=== PATIENT | female | born 1980 | race Hispanic/Latino ===

== ENCOUNTER 2018-05-22 12:12 | Emergency (ER) | payer OTHER ==
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
[2018-05-22] MEDS ORDERED: IBUPROFEN 400 MG TAB ONE (13:53)
[2018-05-22] MEDS ORDERED: ACETAMINOPHEN 500 MG TAB ONE (13:54)
[2018-05-22] MEDS ORDERED: ONDANSETRON 4 MG (ODT) TAB ONE (13:54)
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
[2018-05-22 14:40] LABS: Urine Blood NEGATIVE (NEG); Urine Glucose NEGATIVE (NEG); Urine Protein NEGATIVE (NEG)
== END 2018-05-22 14:16 | disposition home or self-care (01) ==
LOC: ER 12:12
DX: R51 Headache (principal); Z88.1 Allergy status to other antibiotic agents
CPT/HCPCS: 70450; 81003; 81025; 99283

== ENCOUNTER 2018-06-24 12:40 | Emergency (ER) | payer OTHER ==
--- NOTE | 2018-06-24 13:50 | ER ---
Nurse's Notes [facility] Name: Suzanna Liu Age: 37 yrs Sex: Female : 1980 Arrival Date: 06/24/2018 Time: 12:42 Bed Waiting Private MD: Diagnosis: Presentation: 06/24 12:48 Presenting complaint: Patient states: "I've been seeing bright holographic lights with aa5 my left eye only for about an hour and I have a headache now". Pt also reports nausea. Transition of care: patient was not received from another setting of care. Onset of symptoms was June 24, 2018. Risk Assessment: Do you want to hurt yourself or someone else? Patient reports no desire to harm self or others. Initial Sepsis Screen: Does the patient meet any 2 criteria? No. Patient's initial sepsis screen is negative. Does the patient have a suspected source of infection? No. Patient's initial sepsis screen is negative. Care prior to arrival: None. 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 - Social history:: Smoking status: Patient/guardian denies using tobacco. - Ebola Screening: : No symptoms or risks identified at this time. Vital Signs: 12:50 BP 116 / 70; Pulse 81; Resp 16 S; Temp 98.3(TE); Pulse Ox 100% on R/A; Weight 67.59 kg aa5 (R); Height 5 ft. 2 in. (157.48 cm) (R); Pain 3/10; 12:50 Body Mass Index 27.25 (67.59 kg, 157.48 cm) aa5 ED Course: 12:42 Patient arrived in ED. as 12:48 Arm band placed on. aa5 12:49 Triage completed. aa5 13:49 Duran Sánchez MD is Attending Physician. ss Administered Medications: No medications were administered Outcome: 13:49 Patient left the ED. ss Signatures: Rubia Nava Audri RN RN aa5 Karley Chiu, RN RN ss
== END 2018-06-24 13:49 | disposition left against medical advice (07) ==
LOC: ER 12:40
DX: Z53.21 Procedure and treatment not carried out due to patient leaving prior to being seen by health care provider (principal)

== ENCOUNTER 2018-06-25 10:11 | Emergency (ER) | payer OTHER ==
[2018-06-25] MEDS ORDERED: METOCLOPRAMIDE 10 MG/2mL INJ ONE (11:30)
[2018-06-25] MEDS ORDERED: NA CHLORIDE 0.9% 100 ML IV ONE (11:30)
[2018-06-25] MEDS ORDERED: DIPHENHYDRAMINE 50 MG/ML VIAL ONE (11:30)
--- NOTE | 2018-06-25 11:48 | RAD REPORT ---
EXAM DESCRIPTION: CT - Head Brain Wo Cont - 06/25/2018 11:37 am CLINICAL HISTORY: Headache left-sided pain any itching COMPARISON: CT head May 22, 2018 TECHNIQUE: Axial 5 mm thick images of the head were obtained without IV contrast. All CT scans are performed using dose optimization technique as appropriate and may include automated exposure control or mA/KV adjustment according to patient size. FINDINGS: No intracranial hemorrhage, mass, edema or shift of mid-line structures. No acute infarcti on changes seen. No abnormal extra-axial fluid collections. Ventricles are normal. Mastoid air cells and visualized portions of the paranasal sinuses are clear. No acute bony findings. No identifiable change from comparison. IMPRESSION: Negative non-contrast CT head examination.
--- NOTE | 2018-06-25 12:13 | EDPHYS ---
Physician Documentation [facility] Name: Suzanna Liu Age: 37 yrs Sex: Female : 1980 Arrival Date: 06/25/2018 Time: 10:11 Bed 24 Private MD: ED Physician Duran Sánchez HPI: 06/25 11:52 This 37 yrs old Female presents to ER via Ambulatory with complaints of gs Headache, Doesn't Feel Right. 11:52 The patient complains of pain to the left christian. The patient describes the headache as gs throbbing, burning. Onset: The symptoms/episode began/occurred gradually, yesterday. Associated signs and symptoms: Pertinent positives: blurred vision, AURA. Associated signs and symptoms: Pertinent negatives: altered mental status, vomiting. Severity of symptoms: At its worst the pain was severe, in the emergency department the pain has improved, moderately. Headache History: Denies prior headaches. The symptoms are alleviated by nothing. the symptoms are aggravated by nothing. The patient has not experienced similar symptoms in the past. The patient has not recently seen a physician. 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 - Social history:: Smoking status: Patient uses tobacco products, cigars, "one or two puffs off a cigar", Patient uses alcohol, occasionally. - Ebola Screening: : Patient denies travel to an Ebola-affected area in the 21 days before illness onset. ROS: 11:52 All other systems are negative. gs Exam: 11:52 Head/Face: Normocephalic, atraumatic. Eyes: Pupils equal round and reactive to light, gs extra-ocular motions intact. Lids and lashes normal. Conjunctiva and sclera are non-icteric and not injected. Cornea within normal limits. Periorbital areas with no swelling, redness, or edema. ENT: Nares patent. No nasal discharge, no septal abnormalities noted. Tympanic membranes are normal and external auditory canals are clear. Oropharynx with no redness, swelling, or masses, exudates, or evidence of obstruction, uvula midline. Mucous membranes moist. Neck: Trachea midline, no thyromegaly or masses palpated, and no cervical lymphadenopathy. Supple, full range of motion without nuchal rigidity, or vertebral point tenderness. No Meningismus. Chest/axilla: Normal chest wall appearance and motion. Nontender with no deformity. No lesions are appreciated. Cardiovascular: Regular rate and rhythm with a normal S1 and S2. No gallops, murmurs, or rubs. Normal PMI, no JVD. No pulse deficits. Respiratory: Lungs have equal breath sounds bilaterally, clear to auscultation and percussion. No rales, rhonchi or wheezes noted. No increased work of breathing, no retractions or nasal flaring. Abdomen/GI: Soft, non-tender, with normal bowel sounds. No distension or tympany. No guarding or rebound. No evidence of tenderness throughout. Back: No spinal tenderness. No costovertebral tenderness. Full range of motion. Skin: Warm, dry with normal turgor. Normal color with no rashes, no lesions, and no evidence of cellulitis. MS/ Extremity: Pulses equal, no cyanosis. Neurovascular intact. Full, normal range of motion. Neuro: Awake and alert, GCS 15, oriented to person, place, time, and situation. Cranial nerves II-XII grossly intact. Motor strength 5/5 in all extremities. Sensory grossly intact. Cerebellar exam normal. Normal gait. 11:52 Constitutional: The patient appears in no acute distress, alert, awake. Vital Signs: 10:18 BP 118 / 79; Pulse 82; Resp 17; Temp 98.0(O); Pulse Ox 100% on R/A; Weight 67.59 kg tw2 (R); Height 5 ft. 2 in. (157.48 cm) (R); Pain 3/10; 11:29 BP 111 / 62; Pulse 86; Resp 16; Pulse Ox 100% on R/A; aj1 12:18 BP 98 / 51; Pulse 66; Resp 16; Pulse Ox 100% on R/A; aj1 10:18 Body Mass Index 27.25 (67.59 kg, 157.48 cm) tw2 Nyasia Coma Score: 11:52 Eye Response: spontaneous(4). Verbal Response: oriented(5). Motor Response: obeys gs commands(6). Total: 15. MDM: 11:08 Patient medically screened. 11:52 Differential diagnosis: cluster headache, migraine, neoplasm, vasomotor headache. Data reviewed: vital signs, nurses notes, radiologic studies. Response to treatment: the patient's symptoms have markedly improved after treatment, the patient's condition has returned to base line, and as a result, I will discharge patient. ED course: EPISODE SAME YESTERDAY WENT AWAY RETURNED THIS AM, DIFFERENT CHIN SO WILL CT. 12:11 Response to treatment: the patient's symptoms have resolved after treatment, the gs patient's pain is gone. 06/25 11:12 Order name: CT Head Brain wo Cont; Complete Time: 11:52 Administered Medications: 11:26 Drug: Benadryl 12.5 mg Route: IVP; Site: right antecubital; aj1 12:00 Follow up: Response: No adverse reaction aj1 11:26 Drug: Reglan 5 mg Route: IVP; Site: right antecubital; aj1 12:00 Follow up: Response: No adverse reaction aj1 12:00 Not Given (Patient refused, states that she is feeling better): TORadol - Ketorolac 15 aj1 mg IVP once Disposition: 06/25/18 12:12 Discharged to Home. Impression: Headache. - Condition is Stable. - Discharge Instructions: General Headache Without Cause, Migraine Headache. - Prescriptions for Fiorinal 50- 325-40 mg Oral Capsule - take 1 capsule by ORAL route every 6 hours As needed - not to exceed 6 capsules per day; 12 capsule. - Medication Reconciliation Form, Thank You Letter, Antibiotic Education, Prescription Opioid Use form. - Follow up: Dick Lutehr MD; When: 2 - 3 days; Reason: Re-evaluation by your physician. Signatures: Dispatcher [employer] Lucia Crouch RN RN aj1 Renuka Gilbert RN RN tw2 Duran Sánchez MD MD Corrections: (The following items were deleted from the chart) 12:19 12:12 06/25/2018 12:12 Discharged to Home. Impression: Headache. Condition is Stable. aj1 Forms are Medication Reconciliation Form, Thank You Letter, Antibiotic Education, Prescription Opioid Use. Follow up: Dick Luther; When: 2 - 3 days; Reason: Re-evaluation by your physician. gs
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
== END 2018-06-25 12:19 | disposition home or self-care (01) ==
LOC: ER 10:11
DX: R51 Headache (principal); Z72.0 Tobacco use; Z88.1 Allergy status to other antibiotic agents
CPT/HCPCS: 70450; J2765

== ENCOUNTER 2019-02-27 20:04 | Emergency (ER) | payer OTHER ==
[2019-02-27] MEDS ORDERED: NA CHLORIDE 0.9% 1,000 ML ONE (20:36)
[2019-02-27 21:07] LABS: Absolute Lymphocytes (CBC) 2.1 K/uL (0.7-4.9); Basophils % 1.2 % (0-1.3); Hematocrit 38.7 % (36.0-45.0); Lymphocytes % 28.6 % (15.3-44.8); MPV 9.7 fL (7.6-11.3); RBC Red Blood Cell Count 4.48 M/uL (3.86-4.86)
[2019-02-27 21:09] LABS: Urine Blood TRACE (NEG); Urine Glucose NEGATIVE (NEG); Urine Protein NEGATIVE (NEG); Urine Specific Gravity 1.015 (1.005-1.030); Urine pH 6.5 (5.0-7.0)
[2019-02-27 21:15] LABS: Urine Bacteria <20 /HPF (<20); Urine Culture Reflex Order NOT NEEDED; Urine RBC <5 /HPF (NONE SEEN)
[2019-02-27 21:22] LABS: Albumin 4.1 g/dL (3.4-5.0); Bilirubin Direct 0.1 mg/dL (0-0.2); Bilirubin Total 0.4 mg/dL (0.2-1.0); Potassium 3.8 mmol/L (3.5-5.1); Protein, Total 7.2 g/dL (6.4-8.2)
--- NOTE | 2019-02-27 21:41 | ER ---
Nurse's Notes [facility] Name: Suzanna Liu Age: 38 yrs Sex: Female : 1980 Arrival Date: 02/27/2019 Time: 20:07 Bed 16 Private MD: Diagnosis: Gas pain;Biliary colic Presentation: 02/27 20:12 Presenting complaint: Patient states: "I am having abdominal pain. I am supposed to jd3 have my Gal Bladder looked at, but the pain is also in my left side and goes around to my back.". Transition of care: patient was not received from another setting of care. Onset of symptoms was February 27, 2019. Risk Assessment: Do you want to hurt yourself or someone else? Patient reports no desire to harm self or others. Initial Sepsis Screen: Does the patient meet any 2 criteria? No. Patient's initial sepsis screen is negative. Does the patient have a suspected source of infection? No. Patient's initial sepsis screen is negative. Care prior to arrival: None. 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 - Social history:: Smoking status: Patient/guardian denies using tobacco. - Ebola Screening: : Patient negative for fever greater than or equal to 101.5 degrees Fahrenheit, and additional compatible Ebola Virus Disease symptoms. Screenin:30 Abuse screen: Denies threats or abuse. Denies injuries from another. Nutritional rr5 screening: No deficits noted. Tuberculosis screening: No symptoms or risk factors identified. Fall Risk IV access (20 points). Total Norman Fall Scale indicates No Risk (0-24 pts). Assessment: 20:26 General: Appears in no apparent distress. comfortable, Behavior is calm, cooperative, rr5 appropriate for age. 20:26 Pain: Denies pain. Neuro: Level of Consciousness is awake, alert, obeys commands, rr5 Oriented to person, place, time, situation, Appropriate for age. Cardiovascular: Capillary refill < 3 seconds Patient's skin is warm and dry. Respiratory: Airway is patent Respiratory effort is even, unlabored, Respiratory pattern is regular, symmetrical. GI: Abdomen is flat, Reports upper abdominal pain. : No signs and/or symptoms were reported regarding the genitourinary system. EENT: No signs and/or symptoms were reported regarding the EENT system. Derm: Skin is intact, is healthy with good turgor, Skin temperature is warm. Musculoskeletal: Circulation, motion, and sensation intact. Capillary refill < 3 seconds. 21:20 Reassessment: Patient appears in no apparent distress at this time. Patient and/or rr5 family updated on plan of care and expected duration. Pain level reassessed. Patient is alert, oriented x 3, equal unlabored respirations, skin warm/dry/pink. ultrasound at bedside. 22:08 Reassessment: Patient appears in no apparent distress at this time. Patient is alert, rr5 oriented x 3, equal unlabored respirations, skin warm/dry/pink. discharge instruction given and explained without complaints made. Patient denies pain at this time. Patient states symptoms have improved. Vital Signs: 20:14 BP 116 / 64; Pulse 79; Resp 17 S; Temp 98.1(O); Pulse Ox 100% on R/A; Weight 60.78 kg jd3 (R); Height 5 ft. 2 in. (157.48 cm) (R); Pain 5/10; 21:00 BP 110 / 62; Pulse 79; Resp 19; Pulse Ox 98% ; rr5 22:10 BP 105 / 62; Pulse 75; Resp 16; Temp 98.2; Pulse Ox 99% ; Pain 0/10; rr5 20:14 Body Mass Index 24.51 (60.78 kg, 157.48 cm) jd3 ED Course: 20:07 Patient arrived in ED. cl3 20:13 Triage completed. jd3 20:15 Arm band placed on. jd3 20:18 [facility]ced[facility]C [facility] snw 20:18 Marques Magaña MD is Attending Physician. snw 20:26 Hernandez Benoit RN is Primary Nurse. rr5 20:30 Patient has correct armband on for positive identification. Placed in gown. Bed in low rr5 position. Call light in reach. 20:50 Inserted saline lock: 20 gauge in left antecubital area, using aseptic technique. rr5 20:55 Inserted saline lock: 22 gauge in right antecubital area, using aseptic technique. rr5 Blood collected. 21:31 US Abdomen Limited In Process Unspecified. EDMS 22:09 No provider procedures requiring assistance completed. IV discontinued, intact, rr5 bleeding controlled, No redness/swelling at site. Pressure dressing applied. Administered Medications: 20:50 Drug: NS 0.9% 1000 ml Route: IV; Rate: 125 ml/hr; Site: left antecubital; rr5 21:52 Follow up: Response: No adverse reaction; IV Status: Completed infusion; IV Intake: rr5 1000ml 21:51 Drug: Simethicone 120 mg Route: PO; rr5 22:11 Follow up: Response: No adverse reaction rr5 Intake: 21:52 IV: 1000ml; Total: 1000ml. rr5 Outcome: 21:40 Discharge ordered by . bob 22:09 Discharged to home ambulatory. rr5 22:09 Condition: stable 22:09 Discharge instructions given to patient, Instructed on discharge instructions, follow up and referral plans. medication usage, Demonstrated understanding of instructions, follow-up care, medications, Prescriptions given X 2. 22:20 Patient left the ED. rr5 Signatures: Dispatcher [employer] EDW[facility] Jessica Sauceda, GROUNDWATER MONITORING TECHNICIAN-C GROUNDWATER MONITORING TECHNICIAN-Bridger Elias RN RN Hernandez Diaz RN RN rr5 Luis Miguel Browne cl3
--- NOTE | 2019-02-27 21:42 | EDPHYS ---
Physician Documentation [facility] Name: Suzanna Liu Age: 38 yrs Sex: Female : 1980 Arrival Date: 02/27/2019 Time: 20:07 Bed 16 Private MD: NIGEL Physician Marques Magaña HPI: 02/27 21:36 This 38 yrs old Female presents to ER via Ambulatory with complaints of snw Gallbladder Pain. 21:36 Onset: The symptoms/episode began/occurred gradually, 4 month(s) ago, waxes and wanes. snw Associated signs and symptoms: Pertinent positives: abdominal pain, nausea. Modifying factors: The patient symptoms are alleviated by nothing, the patient symptoms are aggravated by nothing. The patient has experienced similar episodes in the past. The patient has been recently seen by a physician: the patient's primary care provider, MAC Rolle. 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 - Social history:: Smoking status: Patient/guardian denies using tobacco. - Ebola Screening: : Patient negative for fever greater than or equal to 101.5 degrees Fahrenheit, and additional compatible Ebola Virus Disease symptoms. ROS: 21:37 Constitutional: Negative for fever, chills, and weight loss, Eyes: Negative for injury, snw pain, redness, and discharge, ENT: Negative for injury, pain, and discharge, Neck: Negative for injury, pain, and swelling, Cardiovascular: Negative for chest pain, palpitations, and edema, Respiratory: Negative for shortness of breath, cough, wheezing, and pleuritic chest pain, Abdomen/GI: Positive for abdominal pain, nausea, denies vomiting, diarrhea, and constipation, Back: Negative for injury and pain, : Negative for injury, bleeding, discharge, and swelling, MS/Extremity: Negative for injury and deformity, Skin: Negative for injury, rash, and discoloration, Neuro: Negative for headache, weakness, numbness, tingling, and seizure, Psych: Negative for depression, anxiety, suicide ideation, homicidal ideation, and hallucinations. Exam: 21:37 Constitutional: This is a well developed, well nourished patient who is awake, alert, snw and in no acute distress. Head/Face: Normocephalic, atraumatic. Eyes: Pupils equal round and reactive to light, extra-ocular motions intact. Lids and lashes normal. Conjunctiva and sclera are non-icteric and not injected. Cornea within normal limits. Periorbital areas with no swelling, redness, or edema. ENT: Nares patent. No nasal discharge, no septal abnormalities noted. Tympanic membranes are normal and external auditory canals are clear. Oropharynx with no redness, swelling, or masses, exudates, or evidence of obstruction, uvula midline. Mucous membranes moist. Neck: Trachea midline, no thyromegaly or masses palpated, and no cervical lymphadenopathy. Supple, full range of motion without nuchal rigidity, or vertebral point tenderness. No Meningismus. Chest/axilla: Normal chest wall appearance and motion. Nontender with no deformity. No lesions are appreciated. Cardiovascular: Regular rate and rhythm with a normal S1 and S2. No gallops, murmurs, or rubs. Normal PMI, no JVD. No pulse deficits. Respiratory: Lungs have equal breath sounds bilaterally, clear to auscultation and percussion. No rales, rhonchi or wheezes noted. No increased work of breathing, no retractions or nasal flaring. Abdomen/GI: Soft, non-tender, with normal bowel sounds. No distension or tympany. No guarding or rebound. No evidence of tenderness throughout. Back: No spinal tenderness. No costovertebral tenderness. Full range of motion. Skin: Warm, dry with normal turgor. Normal color with no rashes, no lesions, and no evidence of cellulitis. MS/ Extremity: Pulses equal, no cyanosis. Neurovascular intact. Full, normal range of motion. Neuro: Awake and alert, GCS 15, oriented to person, place, time, and situation. Cranial nerves II-XII grossly intact. Motor strength 5/5 in all extremities. Sensory grossly intact. Cerebellar exam normal. Normal gait. Psych: Awake, alert, with orientation to person, place and time. Behavior, mood, and affect are within normal limits. Vital Signs: 20:14 BP 116 / 64; Pulse 79; Resp 17 S; Temp 98.1(O); Pulse Ox 100% on R/A; Weight 60.78 kg jd3 (R); Height 5 ft. 2 in. (157.48 cm) (R); Pain 5/10; 21:00 BP 110 / 62; Pulse 79; Resp 19; Pulse Ox 98% ; rr5 22:10 BP 105 / 62; Pulse 75; Resp 16; Temp 98.2; Pulse Ox 99% ; Pain 0/10; rr5 20:14 Body Mass Index 24.51 (60.78 kg, 157.48 cm) jd3 MDM: 20:19 Patient medically screened. cheryl 21:44 Data reviewed: vital signs, nurses notes. Data interpreted: Pulse oximetry: on room air snw is 100 %. Interpretation: normal. Counseling: I had a detailed discussion with the patient and/or guardian regarding: the historical points, exam findings, and any diagnostic results supporting the discharge/admit diagnosis, lab results, radiology results, the need for outpatient follow up, to return to the emergency department if symptoms worsen or persist or if there are any questions or concerns that arise at home. Special discussion: Based on the patient's Hx, exam, and Dx evaluation, there is no indication for emergent surgery or inpatient Tx. It is understood by the patient/guardian that if the Sx's persist or worsen they need to return immediately for re-evaluation. Based on the history and exam findings, there is no indication for further emergent testing or inpatient evaluation. I discussed with the patient/guardian the need to see the primary care provider for further evaluation of the symptoms. 02/27 20:19 Order name: Basic Metabolic Panel; Complete Time: 21:34 snw 02/27 20:19 Order name: CBC with Diff snw 02/27 20:19 Order name: Creatinine for Radiology; Complete Time: 21:23 snw 02/27 20:19 Order name: Hepatic Function; Complete Time: 21:34 snw 02/27 20:19 Order name: Lipase; Complete Time: 21:34 snw 02/27 20:34 Order name: Urine Dipstick--Ancillary (enter results); Complete Time: 21:12 ar5 02/27 20:19 Order name: IV Saline Lock; Complete Time: 20:56 snw 02/27 20:19 Order name: Labs collected and sent; Complete Time: 20:56 snw 02/27 20:34 Order name: Urine --Ancillary (enter results); Complete Time: 21:12 ar5 02/27 20:41 Order name: Urine Microscopic Only; Complete Time: 21:17 ar5 02/27 20:58 Order name: US Abdomen Limited snw Administered Medications: 20:50 Drug: NS 0.9% 1000 ml Route: IV; Rate: 125 ml/hr; Site: left antecubital; rr5 21:52 Follow up: Response: No adverse reaction; IV Status: Completed infusion; IV Intake: rr5 1000ml 21:51 Drug: Simethicone 120 mg Route: PO; rr5 22:11 Follow up: Response: No adverse reaction rr5 Disposition: 02/27/19 21:40 Discharged to Home. Impression: Gas pain, Biliary colic. - Condition is Stable. - Discharge Instructions: Abdominal Pain, Adult, Intestinal Gas and Gas Pains, Pediatric. - Prescriptions for Gas- X Ultra-Strength - take 250 milligram by ORAL route 2-3 times daily; 1 box. Bentyl 20 mg Oral Tablet - take 1 tablet by ORAL route every 6 hours As needed; 20 tablet. - Medication Reconciliation Form, Thank You Letter, Antibiotic Education, Prescription Opioid Use form. - Follow up: Emergency Department; When: As needed; Reason: Worsening of condition. Follow up: Private Physician; When: 2 - 3 days; Reason: Recheck today's complaints, Continuance of care, Re-evaluation by your physician. Addendum: 03/03/2019 08:52 Co-signature as Attending Physician, Marques Magaña MD I agree with the assessment and c shanks plan of care. Signatures: Dispatcher [employer] [facility] Marques Magaña MD MD cha Therrien, Shelly, LEAD PROGRAMMER-C LEAD PROGRAMMER-Bridger Elias RN RN Hernandez Diaz RN RN rr5 Corrections: (The following items were deleted from the chart) 02/27 22:20 21:40 02/27/2019 21:40 Discharged to Home. Impression: Gas pain; Biliary colic. rr5 Condition is Stable. Forms are Medication Reconciliation Form, Thank You Letter, Antibiotic Education, Prescription Opioid Use. Follow up: Emergency Department; When: As needed; Reason: Worsening of condition. Follow up: Private Physician; When: 2 - 3 days; Reason: Recheck today's complaints, Continuance of care, Re-evaluation by your physician. bob
[2019-02-27] MEDS ORDERED: SIMETHICONE 80 MG TAB ONE (21:49)
[2019-02-27 22:39] VITALS: BP 105/62; TEMP 98.2; O2SAT 99
--- NOTE | 2019-02-28 08:49 | RAD REPORT ---
EXAM DESCRIPTION: US - Abdomen Exam Limited - 02/27/2019 9:31 pm CLINICAL HISTORY: ABD PAIN COMPARISON: Abdomen Pelvis W Contrast dated 09/18/2016 FINDINGS: No gallstones, sludge or other abnormalities within the gallbladder lumen. There is no wal l thickening or pericholecystic fluid. No common duct stone or biliary tree dilatation identified. IMPRESSION: Normal gallbladder and biliary tree ultrasound.
== END 2019-02-27 22:20 | disposition home or self-care (01) ==
LOC: ER 20:04
DX: K80.50 Calculus of bile duct without cholangitis or cholecystitis without obstruction (principal)
CPT/HCPCS: 85025; 80048; 36415; 81025; 80076; 83690; 76705; 96360; 99284; J7030; 81003; 81015

== ENCOUNTER 2019-06-12 07:40 | Day surgery (SDC) | payer OTHER ==
[2019-06-06 09:25] LABS: Absolute Lymphocytes (CBC) 1.5 K/uL (0.7-4.9); Basophils % 1.2 % (0-1.3); Hematocrit 39.2 % (36.0-45.0); Lymphocytes % 28.7 % (15.3-44.8); MPV 10.1 fL (7.6-11.3); RBC Red Blood Cell Count 4.44 M/uL (3.86-4.86)
--- OUTSIDE RECORDS SUMMARY | 2019-06-12 07:50 | XMS REPORT | Summary of Care ---
:1980 Author Organization [address] [address] Care Team Providers Name Role Phone Roger Primary Care Provider Reason for Referral Radiology Services (DORINDA) Status Reason Specialty Diagnoses / Referred By Referred To Procedures Contact Contact Closed Diagnostic Diagnoses RUQ abdominal pain Nydia Duran Radiology Procedures NM HEPATOBILIARY W INTERVENTION [address] [facility] [place] [address] Reason for Visit Auth/Cert Status Reason Specialty Diagnoses / Procedures Referred By C ontact Referred To Contact Radiology [facility] Nuclear Medicine [address] [place] [address] Phone: Fax: Encounter Details Date Type Department Care Team Description 04/25/2019 Hospital Encounter [facility] Radiolog y Arrived [address] [place] [address] [place] [address] Allergies No Known Allergiesdocumented as of this encounter (statuses as of 04/26/2019) Medications Not on filedocumented as of this encounter (statuses as of 04/26/2019) Active Problems Not on filedocumented as of this encounter (statuses as of 04/26/2019) Social History Tobacco Use Types Packs/Day Years Used Date Never Assessed Sex Assigned at Date Recorded Not on file Job Start Date Occupation Industry Not on file Not on file Not on file Travel History Travel Start Travel End No recent travel history available. documented as of this encounter Last Filed Vital Signs Not on filedocumented in this encounter Plan of Treatment Health Maintenance Due Date Last Done Comments VARICELLA VACCINES (1 of 2 - 11/22/1983 2-dose childhood series) DTaP,Tdap,and Td Vaccines (1 - 1993 Tdap) PAP SMEAR 11/22/2003 INFLUENZA VACCINE (#1) 2018 PNEUMOCOCCAL 0-64 YEARS COMBINED Aged Out No longer eligible based on SERIES patient's age to complete this topic documented as of this encounter Procedures Procedure Name Priority Date/Time Associated Comments Diagnosis NM HEPATOBILIARY W DORINDA 04/25/2019 11:20 RUQ abdominal pain Results for this INTERVENTION AM CLOTH BOIL OFF MACHINE 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 documented in this encounter Results NM HEPATOBILIARY W INTERVENTION (04/25/2019 11:20 AM CLOTH BOIL OFF MACHINE OPERATOR) Specimen Impressions Performed At PACS/VR/DOSE There is no evidence for acute cholecyst itis or biliary obstruction. However, the gallbladder ejection fraction is 25 %. Th is is low as normal is more than 35%. Findings suggest chron ic or acalculous cholecystitis. Narrative Performed At [facility] PACS/VR/DOSE CLINICAL HISTORY: 38-year-old female w ith abdominal pain. COMPARISON: None TECHNIQUE AND FINDINGS: The patient received an intravenous inje ction of 8 mCi technetium 99m mebrofenin and sequential images of the abdomen were o btained for one hour. Initial images show normal tracer uptake by the liver parenchyma with rapid washout to intra and extrahepatic bile d ucts. The common bile duct is patent with visualization of the duodenum by 35 minute s. The tracer moves antegrade in the small bowel. The gallbladder is visualized by 8 minut es, it is elongated with normal volume. There is no evidence for acute c holecystitis or biliary obstruction. The patient received an intravenous inje ction of 2 mcg CCK and dynamic imaging continued for one hour. Procedure Note [facility], Radiant Results Inft User - 2019 1:43 PM CLOTH BOIL OFF MACHINE OPERATOR [facility] CLINICAL HISTORY: 38-year-old female wi th abdominal pain. COMPARISON: None TECHNIQUE AND FINDINGS: The patient received an intravenous inje ction of 8 mCi technetium 99m mebrofenin and sequential images of the abdomen were obtained for one hour. Initial images show normal tracer uptake by the liver parenchyma with rapid washout to intra and extrahepatic bile d ucts. The common bile duct is patent with visualization of the duodenu m by 35 minutes. The tracer moves antegrade in the small bowel. The gallbladder is visualized by 8 minut es, it is elongated with normal volume. There is no evidence for acute c holecystitis or biliary obstruction. The patient received an intravenous inje ction of 2 mcg CCK and dynamic imaging continued for one hour. IMPRESSION There is no evidence for acute cholecyst itis or biliary obstruction. However, the gallbladder ejection fracti on is 25 %. This is low as normal is more than 35%. Findings suggest chron ic or acalculous cholecystitis. Performing Organization Address City/State/Zipcode Phone Number PACS/VR/DOSE documented in this encounter Visit Diagnoses Diagnosis RUQ abdominal pain Abdominal pain, right upper quadrant documented in this encounter Administered Medications Medication Order MAR Action Action Date Dose Rate Site tc 99m-mebrofenin Given 04/25/2019 9:36 AM 8.4 millicuries injection 8.4 millicurie CLOTH BOIL OFF MACHINE OPERATOR 8.4 millicurie, Intravenous, ONCE, 1 dose, Sun04/25/19 at 0945, Routine documented in this encounter documented as of this encounter
--- OUTSIDE RECORDS SUMMARY | 2019-06-12 07:50 | XMS REPORT | Summary of Care ---
:1980 Author Organization [address] [address] Care Team Providers Name Role Phone Roger Primary Care Provider Reason for Visit Auth/Cert Status Reason Specialty Diagnoses / Procedures Referred By Nando cole Referred To Contact Radiology [facility] Nuclear [facility] [address] [place] [address] [place] [address] Phone: Fax: Encounter Details Date Type Department Care Team Description 04/25/2019 Hospital Encounter [facility] Radiolog y Arrived [address] [place], [place] [id number] [place] [address] [place] [address] Allergies No Known Allergiesdocumented as [...] abdominal pain Results for this INTERVENTION AM SILK WASHING MACHINE 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 documented in this encounter Results NM HEPATOBILIARY W INTERVENTION (04/25/2019 11:20 AM SILK WASHING MACHINE OPERATOR) Specimen Impressions Performed At PACS/VR/DOSE [...] Results Inft User - 2019 1:43 PM SILK WASHING MACHINE OPERATOR [facility] CLINICAL HISTORY: 38-year-old [...] Phone Number PACS/VR/DOSE documented in this encounter documented as of this encounter
--- OUTSIDE RECORDS SUMMARY | 2019-06-12 07:50 | XMS REPORT ---
:1980 Author Organization [facility] t Address [address] [place] [address] [place] [address] Care Team Providers Name Role Phone Unavailable Unavailable Unavailable Problems This patient has no known problems. Allergies, Adverse Reactions, Alerts This patient has no known allergies or adverse reactions. Medications This patient has no known medications.
[2019-06-12 08:08] LABS: Specific Gravity >= 1.030 (1.005-1.030)
[2019-06-12] MEDS ORDERED: Ringers Lactate 1,000 ML IV ONE (08:24)
[2019-06-12] MEDS ORDERED: CEFOXITIN/SWI 1gm 1 GM/10 ML SYR ONE (08:25)
[2019-06-12] MEDS ORDERED: propofoL 200 MG/20 ML VIAL IV ONE (08:46)
[2019-06-12] MEDS ORDERED: FENTANYL CITR 100 MCG/2 ML ONE (08:46)
[2019-06-12] MEDS ORDERED: ROCURONIUM 50 MG/5 ML VIAL IV ONE (08:46)
[2019-06-12] MEDS ORDERED: MIDAZOLAM HCL 2 MG/2 ML INJ ONE (08:46)
[2019-06-12] MEDS ORDERED: LIDOCAINE 1% MPF 5 ML VIAL ONE (08:46)
[2019-06-12] MEDS ORDERED: ONDANSETRON 4 MG/2 ML VIAL ONE (09:25)
[2019-06-12] MEDS ORDERED: KETOROLAC 30 MG/ML INJ ONE (09:25)
[2019-06-12] MEDS ORDERED: dexAMETHasone 10 MG/ML VIAL ONE (09:25)
[2019-06-12] MEDS ORDERED: GLYCOPYRROLATE 0.2 MG/ML SYR ONE (09:41)
[2019-06-12] MEDS ORDERED: NEOSTIGMINE 1 MG/ML -5 ML ONE (09:41)
[2019-06-12] MEDS ORDERED: HYDROMORPHONE HCL 1 MG/ML INJ ONE (10:24)
[2019-06-12] MEDS ORDERED: HYDROCODONE/APAP 7.5/325 MG TAB ONE (11:19)
[2019-06-12 12:28] VITALS: BP 96/53; TEMP 97.6; O2SAT 100
--- NOTE | 2019-06-12 22:14 | OP ---
Date of Procedure: 06/12/2019 Surgeon: Shukri Singletary MD Underwriting Consultant: DARIEN Nguyen Preoperative Diagnoses: Chronic cholecystitis, biliary dyskinesia. Postoperative Diagnoses: Chronic cholecystitis, biliary dyskinesia. Procedure: Laparoscopic cholecystectomy. Estimated Blood Loss: Minimal. Specimen: Gallbladder. Finding: As above. Anesthesia: General. Complications: None. Patient tolerated the procedure, in stable condition, taken to Recovery in good general condition. Operative Note: The patient was brought to the OR and placed in supine position. General anesthesia was begun. Patient was prepped and draped in usual sterile fashion. Marcaine 0.5% was infiltrated locally. A 15-blade was used to make a 1 cm supraumbilical midline incision. Subcutaneous tissue wa s divided. The fascia was identified and divided. #1 Vicryl stay suture was placed. Peritoneal cav ity was entered with sharp and blunt dissection. A 12 mm trocar was placed into the peritoneal cavit y under direct vision. Pneumoperitoneum was established. Then, three 5-mm trocars were placed, 1 in the epigastrium just to the right of midline and 2 in the right subcostal region. Laparoscopy revea led chronic inflammation of the gallbladder, especially near the infundibulum. The fundus retracted superiorly. Infundibulum was identified and retracted inferolaterally. Cystic duct and cystic arter y were clearly identified with blunt dissection. Clips were placed. Both structures divided. Caute ry was used to remove the gallbladder from the liver bed. Bleeding on the liver bed was controlled w ith cautery. The gallbladder was retrieved through the umbilicus via an EndoCatch bag. th e right upper quadrant examined. No evidence of bleeding or bile leakage appreciated. Subsequently, all trocars were removed under direct vision. Stay sutures were tied to each other across the fasci al defect. Subcutaneous wounds irrigated. Bleeding controlled with cautery. 3-0 chromic used to re approximate subcutaneous tissue and close skin. Sterile dressing applied. Patient was awakened and taken to Recovery in good general condition. Discharge Note: The patient will go to Day Surgery and home when stable. Disposition: Home. Condition: Stable. Discharge Instructions: Resume home medications and diet. Activity as tolerated. No heavy lifting. Remove outer dressing in 2 days. Shower. Keep wound clean and dry. Keep Steri-Strips on at all t imes. Tylenol No. 3 one tablet p.o. q.4 p.r.n. pain. Follow up in my office in 1 week. Call for ap pointment. RODRIGO/EVANGELISTA Voice ID: [id number] Report ID: [id number]
== END 2019-06-12 12:15 | disposition home or self-care (01) ==
LOC: OR 07:40
PROVIDERS: ATTEND Surgery
PROC: 0FT44ZZ Resection of Gallbladder, Percutaneous Endoscopic Approach (ICD-10-PCS; principal; 2019-06-12 09:00)
DX: K81.1 Chronic cholecystitis (principal); K82.8 Other specified diseases of gallbladder; Z88.3 Allergy status to other anti-infective agents; Z84.1 Family history of disorders of kidney and ureter; Z82.49 Family history of ischemic heart disease and other diseases of the circulatory system
CPT/HCPCS: 47562; 85025; 36415; 81025; 88304; J2704; J2250; J3010; J1100; J1170; J2710; J7120; J2405